=== PATIENT | male | born 1970 | race Caucasian/White ===

== ENCOUNTER 2020-04-16 20:37 | Outpatient (REF) | payer SELFPAY ==
[2020-04-20 21:06] LABS: Patient Race White; SARS-CoV-2 RNA Undetected (Undetected); SARS-CoV-2 Specimen Source Nasal
== END 2020-04-16 20:57 ==
LOC: NCHCN 20:37
PROVIDERS: Visit Provider Nurse Practitioner Family
DX: J06.9 Acute upper respiratory infection, unspecified (principal)
CPT/HCPCS: U0003

== ENCOUNTER 2021-09-06 10:47 | Outpatient (REF) | payer BC, SELFPAY ==
[2021-09-06 19:38] LABS: ALT 43 U/L (16-63); AST 20 U/L (15-37); Albumin 4.3 g/dL (3.4-5.0); Alkaline Phosphatase 54 U/L (46-116); Anion Gap 11.2 mmol/L (3-11); BUN 15 mg/dL (7-18); Bilirubin, Total 0.6 mg/dL (0.2-1.0); CO2 25.8 mmol/L (21.0-32.0); Calcium 9.4 mg/dL (8.5-10.1); Chloride 103 mmol/L (98-107); Glucose 102 mg/dL (74-106); Sodium 140 mmol/L (136-145); Total Protein 7.5 g/dL (6.4-8.2)
[2021-09-06 19:50] LABS: Vitamin D 25 Total 26.4 ng/mL (30-100)
[2021-09-06 19:56] LABS: Calculated LDL 109 mg/dL (<100); Cholesterol 188 mg/dL (<200); HDL Cholesterol 71 mg/dL (40-60); Triglyceride 40 mg/dL (<150)
== END 2021-09-06 10:48 | disposition home or self-care (01) ==
LOC: NCHCN 10:47
PROVIDERS: Visit Provider Family Medicine
DX: Z00.00 Encounter for general adult medical examination without abnormal findings (principal)
CPT/HCPCS: 80053; 80061; 82306

== ENCOUNTER 2023-04-28 09:01 | Day surgery (SDC) | payer BC, SELFPAY ==
--- NOTE | 2023-04-27 18:05 | W.COLOREPORT ---
Date of service: 04/28/23 Time of Service: 11:25 Colonoscopy Report Date of procedure: 04/28/23 Pre-op diagnosis general: crc screening Post-op diagnosis procedure note: other (polyps) Surgeon: Zoë Fitzpatrick Anesthesia Type: General LMA/ETT Estimated blood loss (mL): 1 Pathology: other Complications: None Disposition: same day Prep: Miralax/Dulcolax Retraction Time: 14 Procedure Description: After informed consent was obtained the patient was taken to the procedure room and placed in a left decubitous position. Monitors were applied and a time out was done. The patients name, date of , procedure, allergies to medications and metal in their body was reviewed. The patient was then sedated. Once sedated and comfortable a rectal exam was done. External exam was normal. Internal exam revealed a normal sphincter tone and no palpable masses. The prostate no masses . The scope was then introduced and retrofelexed. No internal hemorrhoids were identified. The scope was then advanced to the cecum w/out difficulty. The TI and appendiceal orifice were identified. The prep was BBPS II in all segments for a total of 6. . The scope was then slowly retracted over 14 minutes back into the rectum. He had a flat 0.5 cm polyp at 30 cm and x2 flat 0.5 cm polyps in the rectum. All three of these are removed with cold biting forcep. All specimens are retrieved and no bleeding is noted. There are no AVMs or diverticula visualized today. The scope was removed and the patient was woken up and taken back to Same day surgery in stable condition. The patient tolerated the procedure well and there were no immediate complications. Follow up: The patient should follow up in ~7 years, path pending, unless they develop changes in bowel habits or other new gastrointestinal complaints.
--- NOTE | 2023-04-27 18:08 | PDOC.DSDIS_ITS ---
Date of service: 04/28/23 Time of Service: 11:28 Discharge Plan Disposition Patient Disposition: Home Condition: Good Discharge Details Reason For Visit: colon can screening Attending Provider: Zoë Fitzpatrick Primary Care Provider: Thania Silvestre Home Meds and New Rx's Prescriptions: Discontinued polyethylene glycol 3350 17 gram/dose powder 17 g PO DAILY Qty: 238 0RF bisacodyl [Dulcolax (bisacodyl)] 5 mg tablet,delayed release (DR/EC) 5 mg PO ONCE Qty: 4 0RF No Action No Known Home Meds Discharge Instructions Additional Instructions: DSU Colonoscopy Post- Op Instructions Instructions for Everyone who is given Anesthesia: For your safety, please do the following for the next twenty-four (24) hours: *Do Not operate a motor vehicle (car, truck, motorcycle, etc.) *Do Not drink alcoholic beverages or use any recreational drugs for the first 24 hours or while taking pain medications. The medications in your body may have a reaction that can be dangerous. *Do Not make any important decisions or sign any important papers. Findings: X3 colon polyps removed today Follow up: -My office will send you a letter in 2 to 3 weeks time with the results of the pathology and when we want you to repeat the colonoscopy again. 1. No lifting over 20 pounds or strenuous activity for the first 24 hours after your procedure. After 24 hours there are no restrictions on your activity but you may feel fatigued for a few days. 2. After you arrive home you may have a light meal and return to your normal diet as you can tolerate it without feeling sick to your stomach. 3. You may have a bloated, gaseous feeling in your belly (abdomen) after a colonoscopy. Passing gas and belching will help. Walking or lying down on your left side with your knees flexed may relieve the discomfort. Call the office at [phone] (Office) or [phone] (Hospital) right away if you notice any of the following: a.Vomiting of blood or ?coffee ground stools?. b.Rectal bleeding 1Tbsp, blood clots or continuous bleeding. c.Severe belly (abdominal) pain. d.A hard distended belly (abdomen) and an inability to pass gas. 4. Please don?t expect to have a normal BM (bowel movement) for 2-3 days after your procedure. 5. If there are questions regarding the findings of your procedure, please contact your doctor 6. If you are unable to contact your doctor with a problem, contact the hospital at [phone]. 7. Continue all your regular medications unless directed otherwise. I understand the above instructions and have no questions. Signature of Patient or Adult Escort Name of Responsible Adult Escort Signature of Nurse Date/Time Activity:: see above Diet:: see above Discharge Orders Discharge Orders: Discharge Order (Routine); Ordered 04/28/23 Ordered By: Zoë Fitzpatrick DS: Diagnosis Discharge Diagnosis (1) Anxiety: Status: Chronic (2) Hypertension: Status: Chronic (3) Overweight: Status: Acute (4) Screening for colon cancer: Status: Acute (5) Vitamin D deficiency: (6) Personal history of smoking: (7) Screening for malignant neoplasm of colon performed: Status: Acute Asessment and Plan: The patient is seen and examined after their colonoscopy.? The patient has been able to pass gas.? They are not having abdominal pain.? They have been able to tolerate liquids and a snack.? They do not have any nausea or vomiting.? They ar e not having any chest pain or shortness of breath.??? They are not having any rectal bleeding. Their vital signs have been stable-see nursing notes. We discussed findings during their colonoscopy, and any biopsies that were done/polyps that were removed. The patient will be sent a letter with any biopsy results, and when to repeat the colonoscopy.-see discharge instructions. Patient was given explicit instructions to follow-up regarding colonoscopy-refer to discharge instructions.? We reviewed resumption of medications. Patient verbalized understanding and discharged in stable and satisfactory condition- See nursing notes. (8) History of colon polyps: Status: Acute
[2023-04-28 09:35] VITALS: BP 158/96; PULSE 95; RESP 20; TEMP 36.7; O2SAT 98
[2023-04-28] MEDS: Lactated Ringers 1,000 ML 80 ML IV (09:35)
--- NOTE | 2023-04-28 10:26 | W.ANESPRE ---
General Info Date of Service Date Performed: 04/28/23 Height: 6 ft Weight: 112.4 kg Body Mass Index (BMI): 33.6 Surgical Procedure: Operation Date: 04/28/23 10:35 Proposed Procedure Side Surgeon christiano Fitzpatrick DO Meds Allergies and Home Medications Allergies Allergy/AdvReac Type Severity Reaction Status Date / Time No Known Allergies Allergy Verified 04/28/23 09:30 Home Medication Medication Instructions Recorded Unknown [No Known Home Meds] 04/28/23 Current Visit Medications: Current Medications Generic Name Dose Route Start Last Admin Trade Name Freq PRN Reason Stop Dose Admin Hyoscyamine Sulfate 0.125 mg 04/28/23 10:31 Hyoscyamine 0.125 Mg Sl/Oral/Chew SL 05/28/23 10:30 DIRECTED PRN Ringer's Solution 1,000 mls @ 80 mls/hr 04/28/23 06:00 04/28/23 09:35 IV 05/27/23 23:59 80 mls/hr INFUSION ROSALIO Administration IV Miscellaneous Supplies 1 each 04/28/23 06:00 Iv Access IV 05/27/23 23:59 DIRECTED ROSALIO Ondansetron HCl 4 mg 04/28/23 10:31 Ondansetron 4 Mg/2 Ml Vial IVP 05/28/23 10:30 Q4H PRN PRN Nausea / Vomiting Sodium Chloride 0 ml 04/28/23 06:00 Normal Saline Flush 10 Ml Syr IV 05/27/23 23:59 PRN PRN Sodium Chloride 0 ml 04/28/23 06:00 Normal Saline 10 Ml Vial IJ 05/27/23 23:59 DIRECTED PRN Sterile Water 0 ml 04/28/23 06:00 Water,Injection,Sterile 10 Ml Vial IJ 05/27/23 23:59 DIRECTED PRN PFSH Active Problems Active Problems: Problem Status Onset Code Screening for malignant neoplasm of colon performed Z12.11 Anxiety F41.9 Hypertension I10 Overweight E66.3 Screening for colon cancer Z12.11 Medical History Medical History Vitamin D deficiency Personal history of smoking Surgical History Surgical History History of surgery on arm pt reports deep laceration in axilla region requiring surgical intervention to repair Tobacco Smoking/Tobacco Use Status: Former Tobacco Use Alcohol Alcohol Intake: current Alcohol intake frequency: a few times a week Alcohol type: beer and wine Substance Use Substance use: Never Substance use type: does not use Vital Signs and Lab Results Vital Signs Most Recent Vital Signs in EMR: Most Recent Vital Signs Temp Pulse Resp BP Pulse Ox 36.7 C 95 H 20 158/96 H 98 04/28/23 09:35 04/28/23 09:35 04/28/23 09:35 04/28/23 09:35 04/28/23 09:35 Lab Results Blood Type / Crossmatch: No Data to Display Complete Blood Count: No Data to Display Complete Metabolic Panel: No Data to Display Liver Function Panel: No Data to Display Coagulation Panel: No Data to Display Cardiac Panel: No Data to Display Arterial Blood Gas: No Data to Display Venous Blood Gas: No Data to Display Pancreas Panel: No Data to Display Thyroid Panel: No Data to Display Infectious Disease: No Data to Display Blood Cultures: No Data to Display Toxicology Panel: No Data to Display Anesthesia Assessment and Plan Anesthesia History Personal History: No History of Anesthesia Complications Family History: No Family History of Anesthesia Complications Exercise Tolerance Exercise Tolerance: Metabolic Equivalents>4 Pertinent Negatives Pertinent Negatives: No Symptoms of GERD, No Major Cardiovascular Symptoms or Complaints and No Major Pulmonary Symptoms or Complaints Cardiac & Pulmonary Exam Cardiac Exam: Normal S1/S2 Heart Sounds Pulmonary Exam: Clear Bilateral Breath Sounds Implantable Cardiac Device Does patient have a Pacemaker or an ICD?: No Airway Exam Known Difficult Airway: No Mallampati Class: 1 Mouth Opening: Normal (> 3cm) Thyromental Distance: Greater than 3 cm Facial Hair: Full Zavala Neck Range of Motion: Full ROM Neck Circumference: Normal Teeth Condition: Normal Dentition ASA Classification ASA Score: ASA 2 Emergency Case?: No NPO Status NPO Status: NPO Clears >2 hours, Solids >8 hours Anesthesia Plan Resuscitation Status: Full Code Anesthesia Technique: General Anesthesia Airway Planned: Natural Airway Monitors Used: Standard Monitors
[2023-04-28 10:28] VITALS: BMI 33.6
--- NOTE | 2023-04-28 11:02 | BOWEL_PTH ---
PATIENT: Jolynn Cannon LOC: [facility] U#:[id number] AGE/SX: 52/M ROOM: RE04/28/[address]: Zoë Fitzpatrick : 1970 BED: DIS: 04/28/2023 SPEC #: [id number] RECD: 04/28/23 12:31 STATUS: RAMA REQ #: [id number] DANE: 04/28/23 11:[address]: Zoë Fitzpatrick DEPT: Surgical Specimen RECD BY: Octavia Brown ENTERED: 04/28/23 12:32 SP TYPE: Bowel OTHR DR: Thania Silvestre Tissues: 1 - BIOPSY BOWEL 2 - BIOPSY BOWEL Procedures: GROSS AND MICRO LEVEL 4 Comments: [id number]
[2023-04-28 11:19] VITALS: BP 119/73; PULSE 76; RESP 18; TEMP 36.3; O2SAT 97
[2023-04-28 11:52] VITALS: BP 138/85; PULSE 71; RESP 16; TEMP 36.6; O2SAT 99
--- NOTE | 2023-04-28 11:53 | W.ANESPOSTOP ---
Postoperative Evaluation Date, Time and Location Date Performed: 04/28/23 Time Performed: 11:53 Patient Location: Day Surgery Unit Vital Signs Most Recent Imported Vital Signs: Most Recent Vital Signs Temp Pulse Resp BP Pulse Ox 36.3 C L 76 18 119/73 97 04/28/23 11:19 04/28/23 11:19 04/28/23 11:19 04/28/23 11:19 04/28/23 11:19 Pain Score Most Recent Pain Score: Most Recent Pain Score Pain Level 0 04/28/23 11:19 Assessment Mental Status: Awake (Alert & Oriented to Patient Baseline) Airway and Respiratory Function: Patent airway with normal (patient baseline) respiratory exam Cardiovascular Function: Hemodynamically Stable Hydration Status: Adequately Hydrated Nausea & Vomiting: No Nausea or Vomiting Pain: Pt. Denies Any Pain Peripheral Nerve Block: Patient did not receive a nerve block
== END 2023-04-28 09:02 | disposition home or self-care (01) ==
PROVIDERS: PCP Family Medicine; Visit Provider Surgery
PROC: 0DJD8ZZ Inspection of Lower Intestinal Tract, Via Natural or Artificial Opening Endoscopic (ICD-10-PCS; CPT 45378; principal; 2023-04-28 10:30)
DX: Z12.11 Encounter for screening for malignant neoplasm of colon; K63.5 Polyp of colon; I10 Essential (primary) hypertension; Z87.891 Personal history of nicotine dependence
CPT/HCPCS: 45380; 88305; J2001

== ENCOUNTER 2024-06-18 16:46 | Outpatient (REF) | payer BC, SELFPAY ==
[2024-06-18 21:29] LABS: Abs Immature Grans 0.02 10^3/uL (0.0-0.06); Absolute Basophil Count 0.07 10^3/uL (0.0-0.2); Absolute Eosinophil Count 0.03 10^3/uL (0.0-0.7); Absolute Lymphocyte Count 1.59 10^3/uL (1.2-3.4); Absolute Monocyte Count 0.58 10^3/uL (0.1-0.8); Basophils % 0.9 %; Eosinophils % 0.4 %; HCT 50.4 % (40.0-50.0); HGB 17.2 g/dL (13.5-17.5); Immature Grans % 0.3 %; Lymphocytes % 19.9 %; MCH 34.5 pg (27.0-33.0); MCHC 34.1 % (32.0-36.0); MCV 101 fL (80-95); MPV 10.4 fL (8.0-11.0); Monocytes % 7.3 %; Neutrophils % 71.2 %; Platelet Count 238 10^3/uL (130-400); RBC 4.99 10^6/uL (4.36-5.78); RDW 13.5 % (11.8-14.1); RDW-SD 50.6 fL; WBC 7.99 10^3/uL (4.4-10.8)
[2024-06-18 21:54] LABS: ALT 81 U/L (16-63); AST 51 U/L (15-37); Albumin 4.3 g/dL (3.4-5.0); Alkaline Phosphatase 81 U/L (46-116); Anion Gap 12.9 mmol/L (3-11); BUN 9 mg/dL (7-18); Bilirubin, Total 1.53 mg/dL (0.2-1.0); CO2 27.1 mmol/L (21.0-32.0); Calcium 9.9 mg/dL (8.5-10.1); Chloride 103 mmol/L (98-107); Glucose 86 mg/dL (74-106); Potassium 3.5 mmol/L (3.5-5.1); Sodium 143 mmol/L (136-145); Total Protein 7.6 g/dL (6.4-8.2)
[2024-06-18 22:07] LABS: Lipase 32 U/L (<78)
== END 2024-06-18 16:47 | disposition home or self-care (01) ==
LOC: NCHCN 16:46
PROVIDERS: PCP Family Medicine; Visit Provider Family Medicine
DX: R10.10 Upper abdominal pain, unspecified (principal)
CPT/HCPCS: 80053; 83690; 85025